=== PATIENT | female | born 1955 | race Caucasian/White ===

== ENCOUNTER 2023-05-21 06:10 | Emergency (ER) | payer MEDICARE, SELFPAY ==
[2023-05-21] VITALS (9 sets, daily range): BP systolic 108–149; BP diastolic 62–111; BMI 27.1
[2023-05-21 07:08] LABS: % Basophils 0.7 % (0-2); % Immature Granulocytes 0.2 % (0-0.5); % Lymphocytes 19.7 % (20.5-51.1); % Monocytes 6.4 % (1.7-9.3); Absolute Eosinophils 0.1 10^3/uL (0-0.7); Absolute Lymphocytes 1.1 10^3/uL (1.2-3.4); Absolute Monocytes 0.4 10^3/uL (0.1-0.6); Absolute Neutrophils 4.2 10^3/uL (1.4-6.5); Hematocrit 42.2 % (37.0-47.0); Hemoglobin 14.8 g/dL (12.0-16.0); Mean Corp Hgb Conc. 35.1 g/dL (33.0-37.0); Mean Corpuscular Hgb 32.9 pg (27.0-31.0); Mean Corpuscular Volume 93.8 fL (81.0-99.0); Mean Platelet Volume 10.5 fL (7.4-10.4); Nucleated Red Blood Cells % 0 %; Platelet Count 215 10^3/uL (130-400); Red Cell Dist. Width 11.9 % (11.5-14.5); White Blood Cell Count 5.8 10^3/uL (4.8-10.8)
[2023-05-21 07:21] LABS: ALT (SGPT) 16 U/L (0-35); AST (SGOT) 19 U/L (14-36); Albumin 4.3 g/dl (3.5-5.0); Alkaline Phosphatase 84 U/L (38-126); Blood Urea Nitrogen 14 mg/dl (7-17); Carbon Dioxide 25 mmol/L (22-30); Chloride 110 mmol/L (98-107); Estimated Creatinine Clearance 83 ml/min; Glucose 115 mg/dl (70-99); Potassium 3.7 mmol/L (3.5-5.1); Sodium 140 mmol/L (135-145); Total Bilirubin 0.8 mg/dl (0.2-1.3); Total Protein 6.9 g/dl (6.3-8.2); eGFR > 60.00
[2023-05-21 07:32] LABS: Troponin I < 0.012 ng/ml
--- NOTE | 2023-05-21 08:09 | ED.GENMED ---
History of Present Illness
General
Chief Complaint: Anxiety
Source: patient, records and spouse
Exam Limitations: none
Time Seen by Provider: 05/21/23 06:43
Nursing documentation reviewed up to this point in time: agreed with
Travel History
Have you had any contact with someone who has COVID-19?: No
Do you have any symptoms of coronavirus? Fever > 100 degrees, chills, cough, shortness of breath, sore throat, loss of taste or smell, muscle aches, or headache?: No
History of Present Illness
History of Present Illness:
68-year-old female with a past medical history of anxiety, sinus tachycardia/palpitation (on metoprolol for this, seen by Dr. Martinez) who presents to the emergency room with her for evaluation of palpitations and anxiety. Patient reports
that she woke up last night around 2 AM and had trouble getting back to sleep and began having palpitations and felt restlessness/shakiness in her legs. She says that she took a dose of Ativan which she has been prescribed as needed (she says it
was ) and it did not help very much and so she came to the emergency room to be assessed. She denies any chest pain. She denies any shortness of breath. She denies any nausea or vomiting. She denies feeling dizzy or lightheaded. She says
she has had this many times over the past 2 years�she says that she had a head injury/concussion and since then she has been having issues with anxiety/panic. She says that she had been on Zoloft for about 6 months but her symptoms generally
improved and so she weaned off a few months ago. She has been prescribed as needed Ativan but takes it very sparingly and has not had a refill since 2021. She says that her son and grandchildren have been living with her and they are in the
process of moving now and she thinks it is causing some more stress/anxiety in her life she says her anxiety symptoms have been ramping up recently because of this.
Past History
Past History
ED Past Medical History: Arrthythmia (Tachycardia), HTN (Whitecoat hypertension) and Other (Kidney stones); Negative Hypercholesterolemia, IDDM or NIDDM
ED Past Surgical History: Cholecystectomy and Orthopedic (Neck surgery, Knee surgery); Negative Cardiac
Social History
Tobacco: Non-smoker
Alcohol: Occasional
Drug: None
Personal:
Living: with family
Employment: Employed
Family History
Family History: Other (No family history of DVT PE)
Review of Systems
Review of Systems
All Other Systems: ROS reviewed and negative except as documented in HPI and ROS
Constitutional: Denies fever or chills
EENT: Denies sore throat or runny nose
Respiratory: Denies cough or trouble breathing
Cardiac: Reports palpitations; Denies chest pain, diaphoresis or syncope
ABD/GI: Denies abdominal pain, nausea, vomiting or diarrhea
: Denies flank pain
Musculoskeletal: Denies neck pain or back pain
Neurological: Denies dizzy, headache, weakness or numbness
Psychiatric: Reports anxiety and other (Restless)
Phy Exam
Physical Exam
Physical Exam:
General: Awake, alert, oriented x3; anxious but no acute distress
Head: Normocephalic, atraumatic
Eyes: Conjunctiva normal, EOMI, pupils equal round reactive to light bilaterally
Throat: Airway intact, handling secretions
Neck: Trachea midline, supple without meningismus
Lungs: Clear to auscultation bilaterally, no wheezing, rales, rhonchi
Heart: Regular rate and rhythm, no murmurs, gallops, or rubs�triage tachycardia normalized by my assessment
Abd: Soft, non distended, nontender
Neuro: Cranial nerves grossly intact, speech fluid
Skin: no rash
Extremities: No edema in extremities, equal pulses in all extremities
Scores
Heart Failure Risk
Heart Failure Risk Score: Not Applicable
Heart Score for Chest Pain Patients
STEMI patient?: Not applicable
Withdrawal Assessment of Alcohol
Withdrawal Assessment Completed?: Not applicable
Course
Orders/Labs/Results
Orders:
Orders
05/21/23 06:14
Electrocardiogram (*1) Urgent
Reason for Study: Chest Pain
EKG- Treatment ONCE
05/21/23 06:49
Complete Blood Count/With Diff Urgent
Comprehensive Metabolic Panel Urgent
Troponin I Urgent
05/21/23 08:09
Lorazepam [Ativan] 0.5 mg IV NOW STA
Abnormal Lab Results
05/21/23
06:49
MCH 32.9 H pg
(27.0-31.0)
MPV 10.5 H fL
(7.4-10.4)
Absolute Lymphs (auto) 1.1 L 10^3/uL
(1.2-3.4)
Lymphocytes % 19.7 L %
(20.5-51.1)
Chloride 110 H mmol/L
(98-107)
Creatinine 0.5 L mg/dL
(0.6-1.0)
Glucose 115 H mg/dl
(70-99)
05/21/23 06:49
05/21/23 06:49
Vital Signs
Initial and Last Documented VS:
Initial Vital Signs
Temp Pulse Resp BP Pulse Ox
37.1 C 125 18 149/92 98
05/21/23 06:16 05/21/23 06:16 05/21/23 06:16 05/21/23 06:16 05/21/23 06:16
Last Documented Vital Signs
Temp Pulse Resp BP Pulse Ox
37.1 C 73 17 108/63 97
05/21/23 06:16 05/21/23 09:00 05/21/23 09:00 05/21/23 09:00 05/21/23 09:00
MDM/Problems Addressed
Differential Diagnosis Includes:
Anxiety/panic attack, dysrhythmia, electrolyte derangement
MDM/Problems Addressed:
68-year-old female presents for evaluation of palpitations, restlessness and anxiety that started overnight last night similar to prior episodes of anxiety/panic attacks. She took an Ativan and it did not help very much so she came to the
emergency room to be assessed. She was tachycardic in triage this normalized by my assessment. She was also hypertensive again this normalized by my assessment. Physical exam as above. EKG showed sinus tachycardia. Will plan to place an IV
check basic labs including a CBC and CMP. Will monitor on telemetry. Will dose with some Ativan here. Reassess after the above.
Labs reviewed CBC unremarkable, CMP no clinically significant abnormalities. She had a troponin sent as part of her triage labs that was negative�she denies chest pain at any point in time for me.
Clinical reassessment after Ativan here patient had complete resolution of symptoms she is feeling much better and more calm. Vitals are normal. I do suspect her symptoms are related to anxiety they are consistent with prior anxiety attacks that
she has had in the past. We had a long discussion about treatment options she was previously on Zoloft with some improvement we talked about discussing with her primary the utility of restarting this given her increased recent stress. She did have
significant improvement with Ativan here will prescribe short course for her to take only as needed for panic/anxiety attacks similar to last night. We did have a long discussion about not overusing Ativan and the risk for dependency with repeated
use. She is feels very comfortable with this plan in place. We spoke about return precautions and all questions answered.
Chronic conditions affecting care:
Anxiety
Acute Exacerbation and/or Progression of Chronic Illness:
Acutely hypertensive likely related to anxiety this improved without intervention will continue to monitor but no additional antihypertensive indicated at present
Acute Exacerbation and/or Progression of Chronic Illness: HTN
*Pulse Oximetry
Patient hypoxic: no
*EKG
Interpreted by ED Provider?: Yes
Heart Rate: 103
Rate: tachycardiac
Rhythm: sinus and sinus tachycardia
[place]: normal axis
Interval: normal interval
QRS Pattern: normal QRS
Ischemia: no ischemia
*Critical Care Note
Total Time (30-74mins, 75-104mins- exclusive of procedures): Not Applicable
Data Reviewed
Review of Other/Old Records Reveals: Labs and Records
Source: patient, records and spouse
ED Attending Note
-
Portions of this chart may have been created with voice recognition software.� Occasional wrong word or��sound alike� substitutions may have occurred due to the inherent limitations of voice recognition software.
Discharge Plan
Departure
Patient Disposition: Home (Routine Discharge)
Date of Disposition: 05/21/23
Time of Disposition: 09:19
Patient with high blood pressure during this ER visit?: Yes
Discharge Problem:
Palpitations, Anxiety
Instructions: Palpitations, Anxiety, Adult (DC)
Prescriptions:
New
lorazepam 0.5 mg tablet
0.5 mg PO BID PRN (Reason: anxiety) Qty: 10 0RF
No Action
lorazepam [Ativan] 0.5 mg Tablet
0.5 mg PO TID PRN (Reason: anxiety)
metoprolol succinate [Toprol XL] 25 mg tablet extended release 24 hr
12.5 mg PO DAILY
Referrals:
Selene Bey MD [Family Provider] - Call in 1-3 days for appt
Activity Restrictions/Additional Instructions:
Thank you for visiting the Emergency Department at [facility].
1. Please schedule a follow up appointment as directed. Call first thing tomorrow morning to make an appointment.
2. If indicated, please take your medications as instructed and indicated on discharge paperwork.
3. If any of your symptoms do not improve, or persist, or become more severe within 6-12 hours, please return to the emergency department for further care.
4. Please return to the emergency department if you develop a headache, neck pain/stiffness, fever greater than 100.4F, chest pain, shortness of breath, persistent nausea, vomiting, slurred speech, difficulty walking, numbness/tingling, weakness,
signs of infection or any other symptoms that are worrisome to you.
Please call [phone] if you have any questions.
Interventions
Interventions:
*Risk Screen - Suicide Last Done: 05/21/23 06:57
*General Assessment Last Done: 05/21/23 06:56
*Neglect/Abuse Screening Last Done: 05/21/23 06:57
ED- Fall Risk Assessment Last Done: 05/21/23 06:30
*ED COVID-19 Vaccine History Last Done: 05/21/23 06:35
ED-Psychological Assessment Last Done: 05/21/23 06:30
[2023-05-21] MEDS: ATIVAN 0.5 MG IV (08:30)
== END 2023-05-21 09:55 | disposition home or self-care (01) ==
LOC: EMR 06:10
PROVIDERS: EMERGENCY PHYSICIAN Emergency Medicine; FAMILY PHYSICIAN Internal Medicine
DX: F41.9 Anxiety disorder, unspecified (principal); R00.2 Palpitations; I10 Essential (primary) hypertension
CPT/HCPCS: 99284; 96374; 80053; 84484; 85025; 93005

== ENCOUNTER 2023-05-25 07:37 | Emergency (ER) | payer MEDICARE, SELFPAY ==
[2023-05-25 07:40] VITALS: BP 167/81
[2023-05-25 08:09] VITALS: BP 137/62
--- NOTE | 2023-05-25 08:18 | ED.GENMED ---
History of Present Illness
General
Chief Complaint: Heart Rate Problem
Source: patient, records and spouse
Exam Limitations: none
Time Seen by Provider: 05/25/23 08:25
Nursing documentation reviewed up to this point in time: agreed with
Travel History
Have you had any contact with someone who has COVID-19?: No
Do you have any symptoms of coronavirus? Fever > 100 degrees, chills, cough, shortness of breath, sore throat, loss of taste or smell, muscle aches, or headache?: No
History of Present Illness
History of Present Illness:
68-year-old female with history as documented presents to the emergency room accompanied by her for evaluation of palpitations, tachycardia. Patient was notably seen in this emergency room 4 days ago for similar symptoms�at that time she
had reassuring labs, was treated with Ativan with improvement in her symptoms was discharged to follow-up with PCP. She says she saw her primary after her ER visit was started on Zoloft which she took yesterday for the first time. She was also
discharged from the emergency room with as needed Ativan for short course to bridge her to her primary appointment. Last night patient says she woke up from a sound sleep at midnight with severe palpitations. She says she was feeling sensation of
her heart racing. She says that this is similar to symptoms that caused her to present to the ER few days ago and so she took a dose of the Ativan and she went to sleep for a few hours after that. Around 3 AM she woke up again with identical
symptoms this time she was having associated shortness of breath and pressure in her chest. The symptoms were new and she took another dose of Ativan which did not help her symptoms. She came back to the emergency room for assessment. She says
that here in the emergency room chest pain has resolved she is currently chest pain-free�total duration sounds like for a few hours. She still feels palpitations. She denies shortness of breath here. No nausea, vomiting, diaphoresis reported.
Past History
Past History
ED Past Medical History: Arrthythmia (Tachycardia), HTN (Whitecoat hypertension) and Other (Kidney stones); Negative Hypercholesterolemia, IDDM or NIDDM
ED Past Surgical History: Cholecystectomy and Orthopedic (Neck surgery, Knee surgery); Negative Cardiac
Social History
Tobacco: Non-smoker
Alcohol: Occasional
Drug: None
Personal:
Living: with family
Employment: Employed
Family History
Family History: Other (No family history of DVT PE)
Review of Systems
Review of Systems
All Other Systems: ROS reviewed and negative except as documented in HPI and ROS
Constitutional: Denies fever or chills
EENT: Denies sore throat or runny nose
Respiratory: Reports trouble breathing; Denies cough
Cardiac: Reports chest pain and palpitations; Denies diaphoresis or syncope
ABD/GI: Denies abdominal pain, nausea, vomiting or diarrhea
: Denies flank pain
Musculoskeletal: Denies edema, neck pain or back pain
Neurological: Denies dizzy, headache, weakness or numbness
Phy Exam
Physical Exam
Physical Exam:
General: Awake, alert, oriented x3; somewhat anxious but no acute distress
Head: Normocephalic, atraumatic
Eyes: Conjunctiva normal, EOMI
Throat: Airway intact, handling secretions
Neck: Trachea midline, supple without meningismus
Lungs: Clear to auscultation bilaterally, no wheezing, rales, rhonchi
Heart: Tachycardia with regular rhythm, no murmurs, gallops, or rubs appreciated
Abd: Soft, non distended, nontender
Neuro: Cranial nerves grossly intact, speech fluid
Skin: no rash
Extremities: No edema in extremities, warm and well-perfused
Scores
Heart Failure Risk
Heart Failure Risk Score: Not Applicable
Heart Score for Chest Pain Patients
STEMI patient?: No
History: Slightly or Non-Suspicious
ECG: Normal
Age: >/= 65 years
Risk Factors: No Risk Factors
Troponin: </= Normal Limit
Heart Score for Chest Pain Patients: 2
Heart Score Risk: 2.5% MACE over next 6 weeks
PE Wells Score
Symptoms of DVT: No
No alternative diagnosis better explains the illness: No
Tachycardia with pulse > 100: Yes
Immobilization (>=3 days) or surgery within previous 4 weeks: No
Prior history of DVT or pulmonary embolism: No
Presence of hemoptysis: No
Presence of malignancy: No
Pulmonary Embolism Risk Score: 1.5
Probability of PE: Pt is low risk
Withdrawal Assessment of Alcohol
Withdrawal Assessment Completed?: Not applicable
Course
Orders/Labs/Results
Orders:
Orders
05/25/23 07:43
Electrocardiogram (*1) Urgent
Reason for Study: Tachycardia
EKG- Treatment ONCE
05/25/23 08:15
CT Chest Pe Study Urgent
Comment:
Reason For Exam: tachycardia, SOB, CP
05/25/23 08:17
CARDIOLOGY CONSULT Urgent
Consulting Provider: Rodolfo Zimmerman
Was physician already notified: Yes
05/25/23 08:34
Complete Blood Count/With Diff Urgent
Comprehensive Metabolic Panel Urgent
Magnesium Urgent
TSH Reflex To Free T4 Urgent
Troponin I Urgent
Abnormal Lab Results
05/25/23
08:34
MCH 32.6 H pg
(27.0-31.0)
Absolute Lymphs (auto) 0.9 L 10^3/uL
(1.2-3.4)
Neutrophils % 77.3 H %
(42.2-75.2)
Lymphocytes % 14.6 L %
(20.5-51.1)
Glucose 119 H mg/dl
(70-99)
05/25/23 08:34
05/25/23 08:34
Vital Signs
Initial and Last Documented VS:
Initial Vital Signs
Temp Pulse Resp BP Pulse Ox
37.1 C 127 18 167/81 97
05/25/23 07:40 05/25/23 07:40 05/25/23 07:40 05/25/23 07:40 05/25/23 07:40
Last Documented Vital Signs
Temp Pulse Resp BP Pulse Ox
37.1 C 82 12 116/71 99
05/25/23 07:40 05/25/23 10:45 05/25/23 10:45 05/25/23 10:45 05/25/23 08:35
MDM/Problems Addressed
Differential Diagnosis Includes:
Dysrhythmia, pericarditis/myocarditis, electrolyte derangement, anemia, PE, anxiety/panic attack, ACS somewhat less likely based on clinical history
MDM/Problems Addressed:
68-year-old female presents to the emergency room for the second time this week for palpitations and tachycardia this time associated with shortness of breath. She arrived was hypertensive to 167/81, tachycardic to 127 rest of vitals within normal
limits. Physical exam as above. EKG shows sinus tachycardia similar to EKG from a few days ago. Plan to place an IV check labs including a CBC and a CMP, thyroid studies. Will check troponin. Will send for CTA to rule out PE. Case discussed
with cardiology to evaluate.
Labs reviewed: CBC shows no anemia or other clinically significant abnormalities, CMP unremarkable. Troponin undetectable and with symptoms starting at 3 AM this is sufficient to rule out acute OH. Thyroid studies normal. CTA negative for PE.
Cardiology evaluated bedside and arranged for 2-week Holter monitor will arrange for outpatient echocardiogram as well and follow-up with patient in the office. Patient feeling better after ED observation without any particular intervention. No
clear indication for admission at this point, heart rate normalized. Will discharge with close follow-up plan as scheduled�patient to go directly to the cardiology office for monitor to be applied. Patient very happy with this plan. Spoke about
return precautions all questions answered.
Chronic conditions affecting care:
Anxiety
Acute Exacerbation and/or Progression of Chronic Illness:
Acutely hypertensive
Acute Exacerbation and/or Progression of Chronic Illness: HTN
*Radiology
Radiology exam reviewed: radiology read reviewed
*Pulse Oximetry
Patient hypoxic: no
*EKG
Interpreted by ED Provider?: Yes
Heart Rate: 109
Rate: tachycardiac
Rhythm: sinus and sinus tachycardia
[place]: normal axis
Interval: normal interval
QRS Pattern: normal QRS
Ischemia: no ischemia
*Critical Care Note
Total Time (30-74mins, 75-104mins- exclusive of procedures): Not Applicable
Data Reviewed
Review of Other/Old Records Reveals: Labs, Records and Radiology Studies
Source: patient, records and spouse
Patient Management
Discussion with other providers: Pediatric Psychiatrist (Discussed with cardiology)
ED Attending Note
-
Portions of this chart may have been created with voice recognition software.� Occasional wrong word or��sound alike� substitutions may have occurred due to the inherent limitations of voice recognition software.
Discharge Plan
Departure
Patient Disposition: Home (Routine Discharge)
Date of Disposition: 05/25/23
Time of Disposition: 10:59
Patient with high blood pressure during this ER visit?: Yes
Discharge Problem:
Heart palpitations
Instructions: Palpitations (DC)
Prescriptions:
No Action
lorazepam [Ativan] 0.5 mg Tablet
0.5 mg PO TID PRN (Reason: anxiety)
metoprolol succinate [Toprol XL] 25 mg tablet extended release 24 hr
12.5 mg PO DAILY
lorazepam 0.5 mg tablet
0.5 mg PO BID PRN (Reason: anxiety) Qty: 10 0RF
Referrals:
Selene Bey MD [Family Provider] - Call in 1-3 days for appt
Shadi Martinez DO [Active] - Call in 1-3 days for appt
Activity Restrictions/Additional Instructions:
Thank you for visiting the Emergency Department at [facility].
1. Please schedule a follow up appointment as directed. Call first thing tomorrow morning to make an appointment.
2. If indicated, please take your medications as instructed and indicated on discharge paperwork.
3. If any of your symptoms do not improve, or persist, or become more severe within 6-12 hours, please return to the emergency department for further care.
4. Please return to the emergency department if you develop a headache, neck pain/stiffness, fever greater than 100.4F, chest pain, shortness of breath, persistent nausea, vomiting, slurred speech, difficulty walking, numbness/tingling, weakness,
signs of infection or any other symptoms that are worrisome to you.
Please call [phone] if you have any questions.
Interventions
Interventions:
*Risk Screen - Suicide Last Done: 05/25/23 07:42
*General Assessment Last Done: 05/25/23 07:42
*Neglect/Abuse Screening Last Done: 05/25/23 07:42
ED- Cardiac Assessment Last Done: 05/25/23 08:35
ED- Pulmonary Assessment Last Done: 05/25/23 08:35
[2023-05-25 08:53] LABS: % Basophils 0.3 % (0-2); % Eosinophils 0.5 % (0-6); % Immature Granulocytes 0.3 % (0-0.5); % Lymphocytes 14.6 % (20.5-51.1); % Neutrophils 77.3 % (42.2-75.2); Absolute Lymphocytes 0.9 10^3/uL (1.2-3.4); Absolute Monocytes 0.4 10^3/uL (0.1-0.6); Absolute Neutrophils 4.8 10^3/uL (1.4-6.5); Hematocrit 41.2 % (37.0-47.0); Hemoglobin 14.5 g/dL (12.0-16.0); Mean Corp Hgb Conc. 35.2 g/dL (33.0-37.0); Mean Corpuscular Hgb 32.6 pg (27.0-31.0); Mean Corpuscular Volume 92.6 fL (81.0-99.0); Mean Platelet Volume 10.4 fL (7.4-10.4); Nucleated Red Blood Cells % 0 %; Platelet Count 216 10^3/uL (130-400); Red Blood Cell Count 4.45 10^6/uL (4.20-5.40); Red Cell Dist. Width 11.9 % (11.5-14.5); White Blood Cell Count 6.2 10^3/uL (4.8-10.8)
[2023-05-25 09:00] VITALS: BP 114/61
[2023-05-25 09:05] LABS: ALT (SGPT) 16 U/L (0-35); AST (SGOT) 29 U/L (14-36); Albumin 4.3 g/dl (3.5-5.0); Alkaline Phosphatase 83 U/L (38-126); Blood Urea Nitrogen 13 mg/dl (7-17); Calcium 9.2 mg/dl (8.4-10.2); Carbon Dioxide 27 mmol/L (22-30); Chloride 102 mmol/L (98-107); Glucose 119 mg/dl (70-99); Magnesium 2.2 mg/dl (1.6-2.3); Potassium 4.1 mmol/L (3.5-5.1); Sodium 139 mmol/L (135-145); Total Protein 6.9 g/dl (6.3-8.2); eGFR > 60.00
[2023-05-25 09:18] LABS: Troponin I < 0.012 ng/ml
[2023-05-25 09:34] LABS: TSH Reflex To Free T4 0.99 uIU/ml (0.47-4.68)
--- NOTE | 2023-05-25 10:20 | CON.CAR ---
Addendum entered and electronically signed by Shadi Martinez DO 05/25/23 11:08:
I saw and examined the patient.
The Rail Crew Member's note was reviewed and I agree with the note.
Comment:
Plan:
Trop negative and work up has been negative.
Her sx are likely secondary to anxiety.
Check 2 week [employer] monitor to eval for arrhythmia.
Check echo as outpt to reeval EF.
Increase Toprol XL to 12.5 mg BID for better HR control.
Stable cv status.
Discussed with at bedside
Discussed with ER.
Original Note:
Consultation
Consultation Request
Date/Time Consultation Requested: 05/25/23
Date/Time Consultation Performed: 05/25/23
Requesting Provider: Dr. Mattson in the ER
Performing Provider: Dr. Martinez
Reason for Consultation: Palpitations, SOB, h/o SVT
Medical History
-
History of Present Illness:
Patient came to [facility] today after waking up in the middle of the night with palpitations and racing heart, this is her 2nd ER visit for those symptoms in the last week so cardiology has been consulted. Patient follows with Dr. Martinez in the office and
saw him 03/29/23 and she was feeling well at that time. Patient with h/o palpitations and work-up in 2021, at that time she was dealing with life changes including her son moving in with his children and after a work-up including echo and 2
outpatient monitors she was started on Toprol XL 25 mg daily and Zoloft. Patient improved and after 7 months she stopped the Zoloft and then later decreased the Toprol XL to 12.5 mg daily. She thinks she was doing well until she learned in April
that her longtime PCP was retiring and that her son and grandchildren will be moving out on their own coming up soon, these are big life changes for her. Patient was seen in [facility] 05/21/23 for palpitations that felt like previous anxiety symptoms, but
did not respond to Ativan which in hindsight might have been . Patient was given another dose of Ativan in the ER and her symptoms improved and she was discharged to home with a small Rx of the Ativan and then later followed up with her PCP
and was started on Zoloft again. Patient came back to [facility] today with more symptoms of heart racing, palpitations that improved with Ativan at home and she fell asleep. She awoke a few hours later and had heart racing, palpitations and now SOB so
she came to [facility]. Cardiology has been asked to see patient.
PMH:
h/o concussion
h/o SVT
Anxiety
Past Medical History
Past Medical History: Other (in HPI)
Past Surgical History: Cholecystectomy, Gynecological (B/L tubal ligation) and Orthopedic
Social History
Tobacco: Non-Smoker
Alcohol: Occasional
Drug: None
Personal:
Living: With Family (her son and 2 grandchildren have been living with her for the last 3 years and are getting ready to move out, also lives with her )
Family History
Family History: Cancer and Diabetes
Allergies / Home Medications
Allergy/AdvReac Type Severity Reaction Status Date / Time
adhesive Allergy Rash Verified 05/25/23 07:40
Sulfa (Sulfonamide Allergy Rash Verified 05/25/23 07:40
Antibiotics)
Medication Instructions Recorded Confirmed Type
lorazepam 0.5 mg tablet (Ativan) 0.5 mg PO TID PRN anxiety 01/25/22 05/21/23 History
metoprolol succinate 25 mg 12.5 mg PO DAILY 01/25/22 05/21/23 History
tablet,extended release 24 hr
(Toprol XL)
lorazepam 0.5 mg tablet 0.5 mg PO BID PRN anxiety #10 tabs 05/21/23 Rx
Review of Systems
-
History Source: Patient and Family ( sitting bedside)
All other systems: Negative unless noted
Physical Exam
Vital Signs
Temp Pulse Resp BP Pulse Ox
98.7 F 81 10 114/61 99
05/25/23 07:40 05/25/23 09:00 05/25/23 09:00 05/25/23 09:00 05/25/23 08:21
GEN: NAD. AAOx3
HEENT: EOMI, MMM
LUNGS: CTA B/L, no wheezes or rales
CV: Reg, S1/S2, no murmur
ABD: soft, BS+, NT, ND
EXT: No clubbing, cyanosis, lesions or edema B/L
NEURO: Gross non-focal
SKIN: Warm, dry and pink. No rash
Lab Results
05/25/23 08:34
05/25/23 08:34
Troponin I < 0.012 ng/ml 05/25/23 08:34
Impression / Plan
-
PCP: Dr. Bey
Cardiology: Dr. Martinez
Impression:
Palpitations
Sinus tachycardia
Hyperglycemia
h/o SVT
h/o concussion
Anxiety
48 hour Holter 09/2021: SR without pause, no SVT, rare PVCs and PACs
2 week ZIO patch monitor 09/2021: 8 short runs of SVT the longest of which was 17 beats, symptoms correlated with sinus rhythm
Echo 11/24/21: EF 60-65%, no WMA, normal RV size and function, mild to mod TR with PAP 35-40 mmHg
Plan:
-Patient came to [facility] today after waking up in the middle of the night with palpitations and racing heart, this is her 2nd ER visit for those symptoms in the last week so cardiology has been consulted. Patient follows with Dr. Martinez in the office
and saw him 03/29/23 and she was feeling well at that time. Patient with h/o palpitations and work-up in 2021, at that time she was dealing with life changes including her son moving in with his children and after a work-up including echo and 2
outpatient monitors she was started on Toprol XL 25 mg daily and Zoloft. Patient improved and after 7 months she stopped the Zoloft and then later decreased the Toprol XL to 12.5 mg daily. She thinks she was doing well until she learned in April
that her longtime PCP was retiring and that her son and grandchildren will be moving out on their own coming up soon, these are big life changes for her. Patient was seen in [facility] 05/21/23 for palpitations that felt like previous anxiety symptoms, but
did not respond to Ativan which in hindsight might have been . Patient was given another dose of Ativan in the ER and her symptoms improved and she was discharged to home with a small Rx of the Ativan and then later followed up with her PCP
and was started on Zoloft again. Patient came back to [facility] today with more symptoms of heart racing, palpitations that improved with Ativan at home and she fell asleep. She awoke a few hours later and had heart racing, palpitations and now SOB so
she came to [facility]. Cardiology has been asked to see patient.
-Troponin undetectable after symptoms started hours ago. Troponin was also undetectable on 05/21/23.
-ECG reviewed by me shows sinus tachycardia without acute ST changes.
-Check echo as an outpatient. Order placed and cardiology office will call to schedule.
-Arranged for a 14 day CAM monitor to be placed. Patient should walk from the ER to the cardiology office at [address] [facility] [address] [facility] to have monitor placed.
-CT was negative for PE.
-Increase Toprol XL to 12.5 mg BID and monitor for symptoms.
[2023-05-25 10:45] VITALS: BP 116/71
[2023-05-25 11:00] VITALS: BP 110/60
== END 2023-05-25 11:20 | disposition home or self-care (01) ==
LOC: EMR 07:37
PROVIDERS: CONSULT PHYSICIAN Internal Medicine Cardiovascular Disease; EMERGENCY PHYSICIAN Emergency Medicine; FAMILY PHYSICIAN Internal Medicine
DX: R00.2 Palpitations (principal); R06.02 Shortness of breath; R00.0 Tachycardia, unspecified; I10 Essential (primary) hypertension; F41.9 Anxiety disorder, unspecified
CPT/HCPCS: 99285; 71275; 80053; 83735; 84443; 84484; 85025; 93005; Q9967

== ENCOUNTER 2023-05-26 06:09 | Emergency (ER) | payer MEDICARE, SELFPAY ==
[2023-05-26] VITALS (7 sets, daily range): BP systolic 116–155; BP diastolic 65–98; BMI 26.3
--- NOTE | 2023-05-26 06:55 | ED.GENMED ---
History of Present Illness
General
Chief Complaint: Heart Rate Problem
Source: patient
Exam Limitations: none
Time Seen by Provider: 05/26/23 06:22
Nursing documentation reviewed up to this point in time: agreed with
Travel History
Have you had any contact with someone who has COVID-19?: No
Do you have any symptoms of coronavirus? Fever > 100 degrees, chills, cough, shortness of breath, sore throat, loss of taste or smell, muscle aches, or headache?: No
History of Present Illness
History of Present Illness:
68-year-old female with history as documented presents to the emergency room for the third time this week once again complaining of palpitations. Patient reports onset around 2:30 AM while she was trying to sleep. She reports a sensation of racing
heart. Symptoms have been consistent since that time. She reports that today she had some associated shortness of breath with her palpitations. She denies any chest pain this morning although yesterday she had similar symptoms accompanied by
chest pain. She denies any dizziness or syncope. She was initially seen 05/20 with negative workup and symptoms thought to be related to anxiety was prescribed lorazepam to take as needed; she did not take it this morning despite the symptoms
described above. She has been on Zoloft prescribed by her PCP for the past few days. She was seen yesterday by cardiology and prescribed additional metoprolol was also sent over the cardiology office for 2-week monitor which was placed. She is
due to have an echocardiogram today.
Past History
Past History
ED Past Medical History: Arrthythmia (Tachycardia), HTN (Whitecoat hypertension) and Other (Kidney stones); Negative Hypercholesterolemia, IDDM or NIDDM
ED Past Surgical History: Cholecystectomy and Orthopedic (Neck surgery, Knee surgery); Negative Cardiac
Social History
Tobacco: Non-smoker
Alcohol: Occasional
Drug: None
Personal:
Living: with family
Employment: Employed
Family History
Family History: Other (No family history of DVT PE)
Review of Systems
Review of Systems
All Other Systems: ROS reviewed and negative except as documented in HPI and ROS
Constitutional: Denies fever or chills
EENT: Denies sore throat or runny nose
Respiratory: Reports trouble breathing; Denies cough
Cardiac: Reports palpitations; Denies chest pain, diaphoresis or syncope
ABD/GI: Denies abdominal pain, nausea, vomiting or diarrhea
: Denies flank pain
Musculoskeletal: Denies neck pain or back pain
Neurological: Denies dizzy, headache, weakness or numbness
Phy Exam
Physical Exam
Physical Exam:
General: Awake, alert, oriented x3; very anxious
Head: Normocephalic, atraumatic
Eyes: Conjunctiva normal, sclera anicteric
Throat: Airway intact, handling secretions
Neck: Trachea midline, supple without meningismus
Lungs: Clear to auscultation bilaterally, no wheezing, rales, rhonchi
Heart: Tachycardia with regular rhythm, no murmurs, gallops, or rubs
Abd: Soft, non distended, nontender
Neuro: No gross deficits
Skin: no rash
Extremities: No edema in extremities, warm and well-perfused
Scores
Heart Failure Risk
Heart Failure Risk Score: Not Applicable
Heart Score for Chest Pain Patients
STEMI patient?: Not applicable
Withdrawal Assessment of Alcohol
Withdrawal Assessment Completed?: Not applicable
Course
Orders/Labs/Results
Orders:
Orders
05/26/23 06:15
ECG [Electrocardiogram (*1)] Urgent
Reason for Study: Palpitations
EKG- Treatment ONCE
05/26/23 06:38
Complete Blood Count/With Diff Urgent
Comprehensive Metabolic Panel Urgent
Troponin I Urgent
05/26/23 06:53
Lorazepam [Ativan] 1 mg PO NOW STA
05/26/23 09:49
Electrocardiogram (*1) Urgent
Reason for Study: Other
Other Reason for Exam: repeat
EKG- Treatment ONCE
05/26/23 10:26
Troponin I Urgent
Abnormal Lab Results
05/26/23
06:38
MCH 32.5 H pg
(27.0-31.0)
MPV 11.0 H fL
(7.4-10.4)
Immature Gran % 0.6 H %
(0-0.5)
Lymphocytes % 17.4 L %
(20.5-51.1)
Glucose 135 H mg/dl
(70-99)
05/26/23 06:38
05/26/23 06:38
Vital Signs
Initial and Last Documented VS:
Initial Vital Signs
Temp Pulse Resp BP Pulse Ox
36.8 C 123 16 155/98 97
05/26/23 06:12 05/26/23 06:12 05/26/23 06:12 05/26/23 06:12 05/26/23 06:12
Last Documented Vital Signs
Temp Pulse Resp BP Pulse Ox
36.8 C 82 13 116/65 97
05/26/23 06:12 05/26/23 09:00 05/26/23 09:00 05/26/23 09:00 05/26/23 06:41
MDM/Problems Addressed
Differential Diagnosis Includes:
Anxiety/panic attack, dysrhythmia, PVCs/PACs; unlikely ACS, PE in light of negative recent workup at general clinical history
MDM/Problems Addressed:
68-year-old female presents for the third time this week for palpitations this morning associated with dyspnea. Has had extensive workup including blood work, troponins, thyroid studies, CTA of the chest; she was seen by cardiology in consultation
yesterday started on metoprolol, given 2-week monitor which was placed which is in place and due for echocardiogram today. Vital signs here significant for hypertension and tachycardia. Physical exam as above. EKG shows sinus tachycardia appears
similar to previous. Plan to place an IV check labs including CBC and CMP, troponin. Will hold on repeat imaging of the chest that she had CTA of the chest yesterday which was normal. Will monitor on telemetry. Will dose with some Ativan.
Reassess after the above. I think at this point threshold for admission is low given third visit in the week.
Labs reviewed CBC and CMP unremarkable. Troponin negative x 1. Repeat pending. Clinical reassessment after Ativan patient is feeling much better. Vital signs normalized. She is now asymptomatic. Again suspicion is that this is likely anxiety
but given that this is her third visit in a week I did speak to the patient at length and explained observation warranted in the hospital setting given multiple repeat visits. She does not wish to be admitted to the hospital she says. Will
continue to monitor pending serial troponins but ultimately plan for discharge once again with planned cardiology follow-up.
Repeat troponin negative. Patient has been observed here for 5 hours and since she has received Ativan she has not had any symptoms. Heart rate normal, no events on monitor. Once again I offered admission for observation in the hospital given
that this is her third visit the patient declined she says she feels fine and wants to go home. She received a call from cardiology while she was here to schedule follow-up. We did speak about return precautions. I reinforced that if she has
symptoms it would be reasonable to try some of the Ativan that was prescribed previously--she has been hesitant to take at home. Spoke about return precautions all questions answered.
Acute Exacerbation and/or Progression of Chronic Illness:
Acutely hypertensive suspect related to anxiety�resolved without intervention no additional antihypertensive indicated at present
Acute Exacerbation and/or Progression of Chronic Illness: HTN
*Radiology
Radiology exam reviewed: radiology read reviewed (Reviewed radiology report from yesterday)
*Pulse Oximetry
Patient hypoxic: no
*EKG
Interpreted by ED Provider?: Yes
Heart Rate: 110
Rate: tachycardiac
Rhythm: sinus tachycardia
Spicer: normal axis
Interval: normal interval
QRS Pattern: normal QRS
Ischemia: no ischemia
*Critical Care Note
Total Time (30-74mins, 75-104mins- exclusive of procedures): Not Applicable
Data Reviewed
Review of Other/Old Records Reveals: Labs and Records
Source: patient, records and spouse
Patient Management
Social determinants of health affecting care: Strong social support
Escalation/DeEscalation of care consider admission/obs:
Considered and in fact offered admission given repeated visits but patient declined. Using shared decision making, discharged; she already has close follow-up planned with cardiology
ED Attending Note
-
Portions of this chart may have been created with voice recognition software.� Occasional wrong word or��sound alike� substitutions may have occurred due to the inherent limitations of voice recognition software.
Discharge Plan
Departure
Patient Disposition: Home (Routine Discharge)
Date of Disposition: 05/26/23
Time of Disposition: 11:18
Patient with high blood pressure during this ER visit?: Yes
Discharge Problem:
Heart palpitations
Instructions: Palpitations (DC)
Prescriptions:
No Action
lorazepam 0.5 mg tablet
0.5 mg PO BID PRN (Reason: anxiety) Qty: 10 0RF
Patient Comments:
05/26/2023, pt. filled this med. on 05/21/2023 for 10 tablets per PDMP. Per pharmacy, this med. was filled on 05/25/2023 for 20 tablets.
metoprolol succinate [Toprol XL] 25 mg tablet extended release 24 hr
12.5 mg PO BID Qty: 60 0RF
Patient Comments:
05/26/2023, per pt., dose was changed yesterday at .
ibuprofen [Advil] 200 mg Tablet
200 mg PO BIDPRN PRN (Reason: mild pain)
Referrals:
Selene Bey MD [Family Provider] - Call in 1-3 days for appt
Shadi Martinez DO [Active] - Keep scheduled appt
Activity Restrictions/Additional Instructions:
Thank you for visiting the Emergency Department at [facility].
1. Please schedule a follow up appointment as directed. Call first thing tomorrow morning to make an appointment.
2. If indicated, please take your medications as instructed and indicated on discharge paperwork.
3. If any of your symptoms do not improve, or persist, or become more severe within 6-12 hours, please return to the emergency department for further care.
4. Please return to the emergency department if you develop a headache, neck pain/stiffness, fever greater than 100.4F, chest pain, shortness of breath, persistent nausea, vomiting, slurred speech, difficulty walking, numbness/tingling, weakness,
signs of infection or any other symptoms that are worrisome to you.
Please call [phone] if you have any questions.
Interventions
Interventions:
*Risk Screen - Suicide Last Done: 05/26/23 06:12
*General Assessment Last Done: 05/26/23 06:41
*Neglect/Abuse Screening Last Done: 05/26/23 06:12
*ED COVID-19 Vaccine History Last Done: 05/26/23 06:12
ED- Cardiac Assessment Last Done: 05/26/23 06:41
ED- Pulmonary Assessment Last Done: 05/26/23 06:41
[2023-05-26 06:58] LABS: % Basophils 0.4 % (0-2); % Eosinophils 0.6 % (0-6); % Immature Granulocytes 0.6 % (0-0.5); % Lymphocytes 17.4 % (20.5-51.1); % Monocytes 6.5 % (1.7-9.3); % Neutrophils 74.5 % (42.2-75.2); Absolute Lymphocytes 1.2 10^3/uL (1.2-3.4); Absolute Monocytes 0.5 10^3/uL (0.1-0.6); Absolute Neutrophils 5.3 10^3/uL (1.4-6.5); Hematocrit 41.4 % (37.0-47.0); Hemoglobin 14.7 g/dL (12.0-16.0); Mean Corp Hgb Conc. 35.5 g/dL (33.0-37.0); Mean Corpuscular Hgb 32.5 pg (27.0-31.0); Mean Corpuscular Volume 91.6 fL (81.0-99.0); Nucleated Red Blood Cells % 0 %; Platelet Count 215 10^3/uL (130-400); Red Blood Cell Count 4.52 10^6/uL (4.20-5.40); White Blood Cell Count 7.1 10^3/uL (4.8-10.8)
[2023-05-26] MEDS: ATIVAN PO (07:09)
[2023-05-26] MEDS: ATIVAN 0.5 MG PO (07:13)
[2023-05-26 07:26] LABS: ALT (SGPT) 17 U/L (0-35); AST (SGOT) 25 U/L (14-36); Albumin 4.5 g/dl (3.5-5.0); Alkaline Phosphatase 80 U/L (38-126); Blood Urea Nitrogen 12 mg/dl (7-17); Calcium 9.2 mg/dl (8.4-10.2); Carbon Dioxide 23 mmol/L (22-30); Chloride 107 mmol/L (98-107); Estimated Creatinine Clearance 83 ml/min; Glucose 135 mg/dl (70-99); Sodium 137 mmol/L (135-145); Total Protein 7.4 g/dl (6.3-8.2); eGFR > 60.00
[2023-05-26 08:05] LABS: Troponin I < 0.012 ng/ml
[2023-05-26 10:57] LABS: Troponin I < 0.012 ng/ml
== END 2023-05-26 11:42 | disposition home or self-care (01) ==
LOC: EMR 06:09
PROVIDERS: EMERGENCY PHYSICIAN Emergency Medicine; FAMILY PHYSICIAN Internal Medicine
DX: R00.2 Palpitations (principal); R00.0 Tachycardia, unspecified; R06.02 Shortness of breath; I10 Essential (primary) hypertension
CPT/HCPCS: 99284; 80053; 84484; 85025; 93005

== ENCOUNTER → 2023-06-14 08:51 | Outpatient (REF) | payer MEDICARE, SELFPAY | LOC: HWRCS 08:51 | PROVIDERS: ATTENDING PHYSICIAN Nuclear Medicine Nuclear Cardiology; FAMILY PHYSICIAN Internal Medicine | DX: R00.2 Palpitations (principal); R00.0 Tachycardia, unspecified; I49.3 Ventricular premature depolarization; I47.10 Supraventricular tachycardia, unspecified | CPT/HCPCS: 93306 ==

== ENCOUNTER 2023-09-13 05:23 | Emergency (ER) | payer MEDICARE, SELFPAY ==
[2023-09-13 05:26] VITALS: BP 155/64
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
[2023-09-13] MEDS: MOTRIN 600 MG PO (06:52)
[2023-09-13 07:48] VITALS: BP 118/63
== END 2023-09-13 07:50 | disposition home or self-care (01) ==
LOC: EMR 05:23
PROVIDERS: EMERGENCY PHYSICIAN Emergency Medicine; FAMILY PHYSICIAN Internal Medicine
DX: S20.212A Contusion of left front wall of thorax, initial encounter (principal); R53.1 Weakness; R10.9 Unspecified abdominal pain; W50.0XXA Accidental hit or strike by another person, initial encounter; I10 Essential (primary) hypertension; Z87.442 Personal history of urinary calculi; Z90.49 Acquired absence of other specified parts of digestive tract
CPT/HCPCS: 99283; 71101

== ENCOUNTER → 2023-10-17 07:40 | Outpatient (REF) | payer MEDICARE, SELFPAY | LOC: HWRAD 07:40 | PROVIDERS: ATTENDING PHYSICIAN Obstetrics & Gynecology; FAMILY PHYSICIAN Internal Medicine | DX: Z12.31 Encounter for screening mammogram for malignant neoplasm of breast (principal); Z78.0 Asymptomatic menopausal state | CPT/HCPCS: 77063; 77067; 77080 ==

== ENCOUNTER 2024-01-22 07:15 | Emergency (ER) | payer MEDICARE, SELFPAY ==
[2024-01-22] VITALS (8 sets, daily range): BP systolic 112–130; BP diastolic 60–70; PULSE 68–87; BMI 26.1
[2024-01-22 08:03] LABS: % Basophils 0.8 % (0-2); % Immature Granulocytes 0.5 % (0-0.5); % Lymphocytes 18.8 % (20.5-51.1); % Monocytes 6.9 % (1.7-9.3); Absolute Basophils 0.1 10^3/uL (0-0.2); Absolute Eosinophils 0.1 10^3/uL (0-0.7); Absolute Lymphocytes 1.2 10^3/uL (1.2-3.4); Absolute Monocytes 0.5 10^3/uL (0.1-0.6); Absolute Neutrophils 4.7 10^3/uL (1.4-6.5); Hematocrit 40.9 % (37.0-47.0); Hemoglobin 13.9 g/dL (12.0-16.0); Mean Corpuscular Hgb 32.2 pg (27.0-31.0); Mean Corpuscular Volume 94.7 fL (81.0-99.0); Mean Platelet Volume 10.4 fL (7.4-10.4); Nucleated Red Blood Cells % 0 %; Platelet Count 195 10^3/uL (130-400); Red Blood Cell Count 4.32 10^6/uL (4.20-5.40); Red Cell Dist. Width 12.1 % (11.5-14.5); White Blood Cell Count 6.6 10^3/uL (4.8-10.8)
[2024-01-22 08:18] LABS: ALT (SGPT) 27 U/L (0-35); AST (SGOT) 27 U/L (14-36); Albumin 4.2 g/dl (3.5-5.0); Alkaline Phosphatase 81 U/L (38-126); Blood Urea Nitrogen 20 mg/dl (7-17); Calcium 9.1 mg/dl (8.4-10.2); Carbon Dioxide 29 mmol/L (22-30); Chloride 106 mmol/L (98-107); Estimated Creatinine Clearance 83 ml/min; Glucose 112 mg/dl (70-99); Potassium 4.1 mmol/L (3.5-5.1); Sodium 143 mmol/L (135-145); Total Bilirubin 0.4 mg/dl (0.2-1.3); Total Protein 6.7 g/dl (6.3-8.2); eGFR > 60.00
--- NOTE | 2024-01-22 08:24 | ED.GENMED ---
History of Present Illness
General
Chief Complaint: Fainting/Passed Out
Source: patient and spouse
Exam Limitations: none
Time Seen by Provider: 01/22/24 07:40
Nursing documentation reviewed up to this point in time: agreed with
History of Present Illness
History of Present Illness:
68 yo female w h/o anxiety and tachycardia post head injury 2 yrs ago with post concussive syndrome (she has been cleared by Neurology, takes Metoprolol and Sertraline), was standing at the kitchen counter made a cup of coffee, had pains across her
lower abdomen, set her coffee cup down, felt faint, in next room heard thud, came running and found pt. on floor awake with soreness back of head and buttocks.
Pt now states back of head is sore and 'my butt hurts.' Denies general headache, denies neck pain. States she felt her face get warm and faint just prior to fall. helped her up and walked to family room and sat for a while. At this time pt
denies chest pain, SOB, abd pain, n/v/d/c. She typically has BM q other day, is due today.
Past History
Past History
ED Past Medical History: Arrthythmia (Tachycardia), HTN (Whitecoat hypertension) and Other (Kidney stones)
ED Past Surgical History: Cholecystectomy and Orthopedic (Neck surgery, Knee surgery); Negative Cardiac
Patient has exhibited threatening behavior?: No
Social History
Tobacco: Non-smoker
Alcohol: Occasional
Drug: None
Personal:
Living: with family
Employment: Employed
Family History
Family History: Other (No family history of DVT PE)
Review of Systems
Review of Systems
Allergies reviewed?: Yes
All Other Systems: ROS reviewed and negative except as documented in HPI and ROS
Constitutional: Denies fever
Respiratory: Denies trouble breathing
Cardiac: Reports syncope (pt denies); Denies chest pain, diaphoresis or palpitations
ABD/GI: Reports abdominal pain; Denies nausea, vomiting, diarrhea, constipated or anorexia
: Denies dysuria, difficulty voiding or urgency
Musculoskeletal: Reports no symptoms
Skin: Reports no symptoms
Neurological: Reports no symptoms
Phy Exam
Physical Exam
Physical Exam:
GENERAL: No acute distress. A&Ox3.
CONSTITUTIONAL: Afebrile.
EYES: PERRL, conjunctivae normal, Pharynx normal, TMs normal
Neck: Supple
ENMT: moist mucus membranes, Pharynx nl
RESPIRATORY: Regular respirations, nonlabored, lungs clear.
CARDIOVASCULAR: Regular rate and rhythm, no murmurs, no rubs.
GI: Soft, nontender, normal BS
MUSCULOSKELETAL: No spinal bony tenderness, Mild tenderness both buttock cheeks, no bruising here. Moves with ease. Well perfused.
SKIN: Warm, dry, pink
PSYCH: Normal mood and affect. Well kept, interactive and appropriate
NEUROLOGIC: Awake, alert and oriented. No focal neurological deficits
Course
Orders/Labs/Results
Orders:
Orders
01/22/24 07:24
EKG [Electrocardiogram (*1)] Urgent
Reason for Study: Syncope
EKG- Treatment ONCE
01/22/24 07:41
Complete Blood Count/With Diff Urgent
Comprehensive Metabolic Panel Urgent
Troponin I Urgent
01/22/24 08:31
Orthostatic VS- Treatment ONCE
01/22/24 09:14
Ibuprofen [Motrin] 600 mg PO NOW STA
Abnormal Lab Results
01/22/24
07:41
MCH 32.2 H pg
(27.0-31.0)
Lymphocytes % 18.8 L %
(20.5-51.1)
BUN 20 H mg/dl
(7-17)
Glucose 112 H mg/dl
(70-99)
01/22/24 07:41
01/22/24 07:41
Vital Signs
Initial and Last Documented VS:
Initial Vital Signs
Temp Pulse Resp BP Pulse Ox
98.2 F 75 16 112/64 100
01/22/24 07:18 01/22/24 07:18 01/22/24 07:18 01/22/24 07:18 01/22/24 07:18
Last Documented Vital Signs
Temp Pulse Resp BP Pulse Ox
98.2 F 72 13 117/68 97
01/22/24 07:18 01/22/24 09:33 01/22/24 09:33 01/22/24 09:33 01/22/24 09:33
MDM/Problems Addressed
Differential Diagnosis Includes:
vasovagal episode, orthostasis
MDM/Problems Addressed:
68 yo female w h/o anxiety and tachycardia post head injury 2 yrs ago with post concussive syndrome (she has been cleared by Neurology, takes Metoprolol and Sertraline), was standing at the kitchen counter made a cup of coffee, had pains across her
lower abdomen, set her coffee cup down, felt faint, in next room heard thud, came running and found pt. on floor awake with soreness back of head and buttocks.
Pt now states back of head is sore and 'my butt hurts.' Denies general headache, denies neck pain. States she felt her face get warm and faint just prior to fall. helped her up and walked to family room and sat for a while. At this time pt
denies chest pain, SOB, abd pain, n/v/d/c. She typically has BM q other day, is due today.
EKG NSR
No significant LOC, not anticoagulated, no significant H/A, normal neuro exam, no head CT indicated.
Pain buttock cheeks soft tissue, no pelvic or spinal/sacral bony tenderness, no imaging indicated, pt agrees
Abd pain just prior to near fainting episode most consistent with vasovagal episode
9:00 a.m.
CBC normal
CMP with no significant abnormality, BUN 20 pt given large glass of water to drink for mild dehydration
Pt remains asymptomatic other than buttock pain
Stable for discharge
*EKG
Interpreted by ED Provider?: Yes
EKG Intrepretation Date: 01/22/24
Interpretation: normal
Heart Rate: 68
Rate: normal
Rhythm: sinus
[place]: normal axis
Interval: normal interval
QRS Pattern: normal QRS
Ischemia: no ischemia
*Critical Care Note
Total Time (30-74mins, 75-104mins- exclusive of procedures): Not Applicable
ED Attending Note
-
Portions of this chart may have been created with voice recognition software.� Occasional wrong word or��sound alike� substitutions may have occurred due to the inherent limitations of voice recognition software.
Discharge Plan
Departure
Patient Disposition: Home (Routine Discharge)
Date of Disposition: 01/22/24
Time of Disposition: 09:16
Patient with high blood pressure during this ER visit?: No
Condition: Good
Discharge Problem:
Vasovagal near-syncope, Contusion of buttock, Contusion of scalp
Instructions: Vasovagal Response, Head injury in adults, Syncope (Fainting) (DC)
Prescriptions:
No Action
lorazepam 0.5 mg tablet
0.5 mg PO BID PRN (Reason: anxiety) Qty: 10 0RF
Patient Comments:
05/26/2023, pt. filled this med. on 05/21/2023 for 10 tablets per PDMP. Per pharmacy, this med. was filled on 05/25/2023 for 20 tablets.
metoprolol succinate [Toprol XL] 25 mg tablet extended release 24 hr
12.5 mg PO BID Qty: 60 0RF
Patient Comments:
05/26/2023, per pt., dose was changed yesterday at [facility].
ibuprofen [Advil] 200 mg Tablet
200 mg PO BIDPRN PRN (Reason: mild pain)
Referrals:
Chela Preciado, DO [Family Provider] - As needed
Activity Restrictions/Additional Instructions:
As we discussed, drink at least 6 eight ounce glasses of water/fluid daily for mild dehydration
Your work up here shows nothing worrisome.
You may be more stiff and sore in next 2-3 days, this is not unusual after a fall.
Interventions
Interventions:
*Risk Screen - Suicide Last Done: 01/22/24 07:18
*General Assessment Last Done: 01/22/24 07:18
*Neglect/Abuse Screening Last Done: 01/22/24 07:18
ED- Fall Risk Assessment Last Done: 01/22/24 07:35
*ED COVID-19 Vaccine History Last Done: 01/22/24 07:24
*Nursing Disposition Last Done: 01/22/24 09:57
ED- Cardiac Assessment Last Done: 01/22/24 07:35
ED- Neurological Assessment Last Done: 01/22/24 07:35
Discharge Date and Time
Discharge Date/Time: 01/22/24 09:58
Print Language: [email or web address]
[2024-01-22 08:29] LABS: Troponin I < 0.012 ng/ml
[2024-01-22] MEDS: MOTRIN 600 MG PO (09:41)
== END 2024-01-22 09:58 | disposition home or self-care (01) ==
LOC: EMR 07:15
PROVIDERS: EMERGENCY PHYSICIAN Emergency Medicine; FAMILY PHYSICIAN Internal Medicine
DX: R55 Syncope and collapse (principal); S30.0XXA Contusion of lower back and pelvis, initial encounter; S00.03XA Contusion of scalp, initial encounter; W19.XXXA Unspecified fall, initial encounter
CPT/HCPCS: 99284; 80053; 84484; 85025; 93005

== ENCOUNTER → 2024-01-26 06:56 | Outpatient (REF) | payer MEDICARE, SELFPAY ==
[2024-01-26 10:41] LABS: HDL Cholesterol 76 mg/dl; LDL Cholesterol, Calculated 117 mg/dl; Total Cholesterol 214 mg/dl (50-199); Triglyceride 108 mg/dl (10-149); Very Low Density Lipoprotein 21 mg/dl (0-30)
== END ==
LOC: HWLAB 06:56
PROVIDERS: ATTENDING PHYSICIAN Internal Medicine
DX: E66.3 Overweight (principal); Z23 Encounter for immunization
CPT/HCPCS: 36415; 80061

== ENCOUNTER → 2024-02-22 07:18 | Outpatient (REF) | payer MEDICARE, SELFPAY | LOC: RCS 07:18 | PROVIDERS: ATTENDING PHYSICIAN Nurse Practitioner; FAMILY PHYSICIAN Internal Medicine | DX: R00.2 Palpitations (principal); R55 Syncope and collapse | CPT/HCPCS: 93017 ==

== ENCOUNTER → 2024-07-20 06:57 | Outpatient (REF) | payer MEDICARE, SELFPAY ==
[2024-07-20 10:35] LABS: ALT (SGPT) 28 U/L (0-35); AST (SGOT) 23 U/L (14-36); Albumin 3.9 g/dl (3.5-5.0); Alkaline Phosphatase 86 U/L (38-126); Blood Urea Nitrogen 15 mg/dl (7-17); Calcium 9.2 mg/dl (8.4-10.2); Carbon Dioxide 28 mmol/L (22-30); Chloride 106 mmol/L (98-107); Glucose 104 mg/dl (70-99); Potassium 4.2 mmol/L (3.5-5.1); Sodium 141 mmol/L (135-145); Total Bilirubin 0.8 mg/dl (0.2-1.3); Total Protein 6.6 g/dl (6.3-8.2); eGFR > 60.00
[2024-07-20 10:57] LABS: TSH Reflex To Free T4 2.66 uIU/ml (0.47-4.68)
== END ==
LOC: HWLAB 06:57
PROVIDERS: ATTENDING PHYSICIAN Internal Medicine
DX: F41.9 Anxiety disorder, unspecified (principal); Z23 Encounter for immunization; E66.3 Overweight; E04.1 Nontoxic single thyroid nodule
CPT/HCPCS: 36415; 80053; 84443

== ENCOUNTER 2024-08-27 06:25 | Day surgery (SDC) | payer MEDICARE, SELFPAY | END 2024-08-27 14:58 | disposition home or self-care (01) | LOC: GI 06:25 | PROVIDERS: ATTENDING PHYSICIAN Internal Medicine Gastroenterology | DX: Z12.11 Encounter for screening for malignant neoplasm of colon (principal); R19.5 Other fecal abnormalities; K57.30 Diverticulosis of large intestine without perforation or abscess without bleeding; K64.8 Other hemorrhoids | CPT/HCPCS: G0121 ==

== ENCOUNTER → 2024-10-17 07:45 | Outpatient (REF) | payer MEDICARE, SELFPAY | LOC: HWWDC 07:45 | PROVIDERS: ATTENDING PHYSICIAN Internal Medicine | DX: Z12.31 Encounter for screening mammogram for malignant neoplasm of breast (principal) | CPT/HCPCS: 77063; 77067 ==

== ENCOUNTER → 2025-01-11 06:59 | Outpatient (REF) | payer MEDICARE, SELFPAY ==
[2025-01-11 10:10] LABS: ALT (SGPT) 24 U/L (0-35); AST (SGOT) 21 U/L (14-36); Albumin 4.2 g/dl (3.5-5.0); Alkaline Phosphatase 92 U/L (38-126); Blood Urea Nitrogen 19 mg/dl (7-17); Calcium 8.9 mg/dl (8.4-10.2); Carbon Dioxide 28 mmol/L (22-30); Chloride 105 mmol/L (98-107); Glucose 110 mg/dl (70-99); HDL Cholesterol 78 mg/dl; LDL Cholesterol, Calculated 133 mg/dl; Potassium 4.4 mmol/L (3.5-5.1); Sodium 136 mmol/L (135-145); Total Protein 7.2 g/dl (6.3-8.2); Very Low Density Lipoprotein 25 mg/dl (0-30); eGFR > 60.00
[2025-01-11 10:14] LABS: Hematocrit 42.7 % (37.0-47.0); Hemoglobin 14.2 g/dL (12.0-16.0); Mean Corp Hgb Conc. 33.3 g/dL (33.0-37.0); Mean Corpuscular Volume 96.2 fL (81.0-99.0); Nucleated Red Blood Cells % 0 %; Platelet Count 235 10^3/uL (130-400); Red Cell Dist. Width 12.2 % (11.5-14.5)
== END ==
LOC: HWLAB 06:59
PROVIDERS: ATTENDING PHYSICIAN Internal Medicine
DX: Z13.31 Encounter for screening for depression (principal); Z12.31 Encounter for screening mammogram for malignant neoplasm of breast; F41.9 Anxiety disorder, unspecified; E66.3 Overweight; Z87.442 Personal history of urinary calculi; E04.1 Nontoxic single thyroid nodule; R00.2 Palpitations; R55 Syncope and collapse; E78.5 Hyperlipidemia, unspecified
CPT/HCPCS: 36415; 80053; 80061; 84443; 85025